=== PATIENT | male | born 1990 | race Caucasian/White ===

== ENCOUNTER → 2020-03-02 | Emergency (ER) | payer OTHER ==
[~2020-03-02] VITALS: Ht 167.6 cm; Wt 64.9 kg
== END | disposition home or self-care (01) ==
LOC: ER 19:27
DX: S01.322A Laceration with foreign body of left ear, initial encounter (principal); S01.82XA Laceration with foreign body of other part of head, initial encounter; W45.8XXA Other foreign body or object entering through skin, initial encounter; Y93.89 Activity, other specified; Y92.89 Other specified places as the place of occurrence of the external cause; Y99.8 Other external cause status

== ENCOUNTER 2020-03-22 10:44 | Emergency (ER) | payer OTHER ==
[~2020-03-22] VITALS: Ht 167.6 cm; Wt 63.5 kg
== END 2020-03-22 15:49 | disposition home or self-care (01) ==
LOC: ER 10:44
DX: Z48.02 Encounter for removal of sutures (principal)